=== PATIENT | female | born 1970 | race Caucasian/White ===

== ENCOUNTER 2016-08-08 13:23 | Emergency (ER) | payer BC ==
--- NOTE | 2016-08-08 13:49 | ERPHSYRPT ---
- History of Present Illness Time Seen by Provider: 08/08/16 13:42 Source: patient Exam Limitations: no limitations Physician History: Seen at last week and was treated for "sinusitis," similar to previous episodes. States still congested and noticed increase headaches for past 2-3 days, similar to previous migraines. States usually takes Imitrex with relief, but did not have any Imitrex to use. Described R temporal headache, throbbing with nausea, vomiting blurred vision, dizziness and photophobia. Denies any blurred vision, numbness or weakness of extremities. States dry cough, fever, nasal congestion, sore throat and bilat. ear aches. States have tried OTC meds but have not been on any antibiotics Timing/Duration: day(s) (3) Quality: throbbing Head Pain Location: frontal, temporal (r) Severity of Pain-Max: moderate Severity of Pain-Current: moderate Recent Head Trauma: no recent headache/trauma Modifying Factors: Improves With: exposure to light (worsens) Associated Symptoms: dizziness, facial pain, light-headedness, nausea/vomiting, nasal congestion, nasal drainage, sinus infection, sensitive to light, visual disturbance, No confusion, No fever/chills, No flushing, No loss of consciousness, No speech problems, No stiff neck, No trouble walking, No weakness Previous symptoms: other (similar to previous migraines) Allergies/Adverse Reactions: Penicillins Allergy (Verified 08/08/16 13:51) Home Medications: Duloxetine HCl 30 mg [Cymbalta 30 MG Capsule] 30 mg PO DAILY 08/08/16 [ History] - Review of Systems Constitutional: No Fever, No Chills Eyes: No Symptoms Ears, Nose, & Throat: Nose Congestion, Nose Discharge, Throat Pain, Painful Swallowing Respiratory: Cough, No Dyspnea Cardiac: No Chest Pain, No Edema, No Syncope Abdominal/Gastrointestinal: No Abdominal Pain, No Nausea, No Vomiting, No Diarrhea Genitourinary Symptoms: No Dysuria Musculoskeletal: No Back Pain, No Neck Pain Skin: No Rash Neurological: Dizziness, Headache, No Focal Weakness, No Irritability, No Lethargy, No Sensory Changes Psychological: No Symptoms Endocrine: No Symptoms All Other Systems: Reviewed and Negative - Nursing Vital Signs Nursing Vital Signs: Initial Vital Signs Temperature 98.3 F Pulse Rate 93 Respiratory Rate 16 Blood Pressure [Right Arm] 168/77 Blood Pressure [Left Arm] 186/99 Pain Intensity 4 - Physical Exam General Appearance: mild distress, anxiety, other (tearful) Eye Exam: PERRL/EOMI, eyes nml inspection, photophobia Ears, Nose, Throat Exam: normal ENT inspection, moist mucous membranes Neck Exam: normal inspection, supple, full range of motion, No meningismus Respiratory Exam: normal breath sounds, lungs clear Cardiovascular Exam: regular rate/rhythm, normal heart sounds Gastrointestinal/Abdominal Exam: soft, No tenderness, No distention Back Exam: normal inspection, normal range of motion Mental Status Exam: alert, oriented x 3, cooperative intellectual property manager Exam: normal speech, PERRL, No facial droop Coordination/Gait Exam: normal cerebellar function Motor/Sensory Exam: no motor deficit, no sensory deficit Skin Exam: normal color, warm, dry, No rash - Course Nursing assessment & vital signs reviewed: Yes - CT Exams Head CT Interpretation: Negative, Tele-radiologist Report Ordered Tests: Active Orders 24 hr Category Date Time Status IV Insertion STAT Care 08/08/16 13:55 Active HEAD WITHOUT CONTRAST [CT] Stat Exams 08/08/16 13:55 Ordered Medication Summary Discontinued Medications Generic Name Dose Route Start Last Admin Trade Name Freq PRN Reason Stop Dose Admin Diphenhydramine HCl 25 mg 08/08/16 13:55 08/08/16 14:08 Benadryl 50 Mg/Ml IV 08/08/16 13:56 25 mg STAT ONE Administration Diphenhydramine HCl Confirm 08/08/16 14:01 Benadryl 50 Mg/Ml Administered 08/08/16 14:02 Dose 50 mg .ROUTE .STK-MED ONE Sodium Chloride 500 mls @ 999 mls/hr 08/08/16 13:55 08/08/16 14:08 Sodium Chloride 0.9% 1000 Ml IV 08/08/16 14:25 999 mls/hr .Q31M STA Administration Sodium Chloride Confirm 08/08/16 14:01 Sodium Chloride 0.9% 1000 Ml Administered 08/08/16 14:02 Dose 1,000 mls @ ud .ROUTE .STK-MED ONE Ketorolac Tromethamine 30 mg 08/08/16 13:55 08/08/16 14:09 Toradol 30 Mg Injection IV 08/08/16 13:56 30 mg STAT ONE Administration Ketorolac Tromethamine Confirm 08/08/16 14:01 Toradol 30 Mg Injection Administered 08/08/16 14:02 Dose 30 mg .ROUTE .STK-MED ONE Prochlorperazine Edisylate 10 mg 08/08/16 13:55 08/08/16 14:09 Compazine 10 Mg/2 Ml IV 08/08/16 13:56 10 mg STAT ONE Administration Prochlorperazine Edisylate Confirm 08/08/16 14:01 Compazine 10 Mg/2 Ml Administered 08/08/16 14:02 Dose 10 mg .ROUTE .STK-MED ONE - Progress Progress: improved Air Movement: good Progress Note: 08/08/16 13:54 Pt. given Compazine, Benadryl, and Toradol 08/08/16 15:09 Pt. resting comfortably sleeping at this time. Counseled pt/family regarding: diagnosis, rad results - Departure Time of Disposition: 15:38 Departure Disposition: Home Clinical Impression: Headache, Sinusitis Condition: Stable Critical Care Time: No Instructions: Headache, Sinusitis Additional Instructions: RX: Levaquin/Compazine Motrin or Tylenol for fever/pain Return for worse headache, dizziness, vomiting or any problems. Prescriptions: Levofloxacin [Levaquin] 500 mg PO DAILY #10 tablet Prochlorperazine Maleate 10 mg [Compazine 10 mg] 10 mg PO Q6-8HPRN PRN #12 tablet PRN Reason: Nausea/Vomiting
[2016-08-08] MEDS ORDERED: BENADRYL 50 MG/ML IV ONE (13:55)
[2016-08-08] MEDS ORDERED: TORAdol 30 mg Injection IV ONE (13:55)
[2016-08-08] MEDS ORDERED: Compazine 10 MG/2 ML IV ONE (13:55)
[2016-08-08] MEDS ORDERED: Sodium Chloride 0.9% 1000 ML 1,000 ML ONE (14:01)
[2016-08-08] MEDS ORDERED: TORAdol 30 mg Injection ONE (14:01)
[2016-08-08] MEDS ORDERED: Compazine 10 MG/2 ML ONE (14:01)
[2016-08-08] MEDS ORDERED: BENADRYL 50 MG/ML ONE (14:01)
[2016-08-08 14:57] VITALS: BP 168/77; PULSE 93; O2SAT 95
--- NOTE | 2016-08-08 19:33 | XRAY ---
Indication: Cluster headaches. Multiple contiguous axial images obtained through the head without contrast. Comparison: February 22, 2009. Again normal appearing brain parenchyma, ventricles, and bony calvarium. There is small fluid leveling in both maxillary sinuses. Mastoid air cells clear. Impression: Again no acute intracranial abnormalities. Incidental paranasal sinus disease. Comment: Preliminary interpretation was made by [facility]. No discrepancy. CTDI 67.80
== END 2016-08-08 15:50 | disposition home or self-care (01) ==
LOC: ED 13:23
DX: R51 Headache (principal); J32.9 Chronic sinusitis, unspecified; R11.2 Nausea with vomiting, unspecified; H53.8 Other visual disturbances; R42 Dizziness and giddiness
CPT/HCPCS: 36000; 70450; 96360; 96374; 96375; 99284; J1200; J1885

== ENCOUNTER 2022-03-06 09:58 | Emergency (ER) | payer OTHER ==
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
[2022-03-06 10:09] VITALS: O2SAT 98
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
[2022-03-06 11:12] VITALS: BP 146/93; PULSE 88
== END 2022-03-06 11:30 | disposition home or self-care (01) ==
LOC: ED 09:58
DX: G44.319 Acute post-traumatic headache, not intractable (principal); S30.1XXA Contusion of abdominal wall, initial encounter; V89.2XXA Person injured in unspecified motor-vehicle accident, traffic, initial encounter; I10 Essential (primary) hypertension; Z79.899 Other long term (current) drug therapy
CPT/HCPCS: 70450; 74176; 99282

== ENCOUNTER 2022-05-10 13:55 | Emergency (ER) | payer SELFPAY ==
[2022-05-10] MEDS ORDERED: Nitrostat 0.4 MG (ED) SL ONE ×2 (14:03→14:17)
[2022-05-10] MEDS ORDERED: Sodium Chloride 0.9% 1000 ML 1,000 ML IV STA (14:03)
[2022-05-10] MEDS ORDERED: BABY ASPIRIN 81 MG CHEW PO ONE (14:03)
--- NOTE | 2022-05-10 14:07 | ERPHSYRPT ---
- History of Present Illness Time Seen by Provider: 05/10/22 14:05 Historian: patient Exam Limitations: no limitations Physician History: Pt c/o chest pain; a few episodes during last few weeks. Pain located on right side. No radiation. Described as sharp. Lasts for several minutes each episode Both at rest and on exertion. Nothing helps the pain Endorses SOB. Denies palpitations, heartburn or emotional stressors. Timing/Duration: week(s) (2) Activities at Onset: activity Quality: sharpness, stabbing Location: other (right chest) Chest Pain Radiation: no radiation Severity of Pain-Max: severe Severity of Pain-Current: severe Modifying Factors: Improves With: nothing Associated Symptoms: nausea, shortness of breath, cough, hurts to breathe, No vomiting, No palpitations, No abdominal pain, No chills, No fever Prior Chest Pain/Cardiac Workup: non-cardiac Nitro Today/Relief: 0.4 mg x 1, provided by ED Aspirin Treatment Today: 81 mg x 4, provided by ED Allergies/Adverse Reactions: Penicillins Allergy (Verified 05/10/22 14:24) Home Medications: Duloxetine HCl 30 mg [Cymbalta 30 MG Capsule] 30 mg PO HS 08/08/16 [History] ALPRAZolam 0.25 MG [xanAX 0.25 MG] 0.25 mg PO DAILY PRN 03/06/22 [History] Lisinopril 10 mg [Zestril 10 MG] 10 mg PO DAILY 03/06/22 [History] Dextroamphetamine/Amphetamine [Adderall 10 mg Tablet] 10 mg PO DAILY 05/10/22 [History] Hx Tetanus, Diphtheria Vaccination/Date Given: No Hx Influenza Vaccination/Date Given: No Hx Pneumococcal Vaccination/Date Given: No Travel Risk - Vaccine Status Have you recieved a Covid-19 vaccination: Yes Applied Researcher: Unknown - Vaccination Dates Dates if Unknown: 2020 - Review of Systems Constitutional: No Symptoms Eyes: No Symptoms Ears, Nose, & Throat: No Symptoms Respiratory: Cough, Dyspnea, Dyspnea on Exertion (JONES), No Wheezing Cardiac: Chest Pain, No Edema, No Palpitations Abdominal/Gastrointestinal: Nausea, No Abdominal Pain, No Vomiting, No Diarrhea, No Constipation Genitourinary Symptoms: No Symptoms Musculoskeletal: No Symptoms Skin: No Symptoms Neurological: No Symptoms Psychological: Anxiety Endocrine: No Symptoms Hematologic/Lymphatic: No Symptoms Immunological/Allergic: No Symptoms - Past Medical History Pertinent Past Medical History: Yes Neurological History: Migraines Respiratory History: Asthma Psycho-Social History: Anxiety - Past Surgical History Past Surgical History: Yes Gastrointestinal: Appendectomy, Cholecystectomy Musculoskeletal: Orthopedic Surgery Female Surgical History: Hysterectomy - Social History Smoking Status: Never smoker Exposure to second hand smoke: No Drug Use: none Patient Lives Alone: Yes - Nursing Vital Signs Nursing Vital Signs: Initial Vital Signs Pulse Rate 97 H 05/10/22 13:55 Respiratory Rate 23 05/10/22 13:55 Blood Pressure 168/97 05/10/22 13:55 O2 Sat by Pulse Oximetry 96 05/10/22 13:55 Pain Scale Pain Intensity 7 - Physical Exam General Appearance: mild distress, anxiety Eye Exam: eyes nml inspection Ears, Nose, Throat Exam: normal ENT inspection Neck Exam: normal inspection Respiratory Exam: normal breath sounds, chest tenderness (right anterior chest), lungs clear, airway intact, No respiratory distress Cardiovascular Exam: regular rate/rhythm, normal heart sounds, No murmur Gastrointestinal/Abdomen Exam: soft, normal bowel sounds, No tenderness Extremity Exam: normal inspection, No swelling, No tenderness Neurologic Exam: alert, oriented x 3, cooperative Skin Exam: normal color, warm, dry SpO2 Interpretation: borderline oxygenation O2 Delivery: Room Air - Course Nursing assessment & vital signs reviewed: Yes EKG Interpreted by Me: RATE (106), Sinus Tach, NORMAL AXIS, NORMAL INTERVALS, NORMAL ST-T - Radiology Exams Chest X-ray Interpretation: Interpreted by me, Negative Ordered Tests: Active Orders 24 hr Category Date Time Status Engineering Intern STAT Care 05/10/22 14:04 Active EKG-ER Only STAT Care 05/10/22 14:03 Active IV Insertion STAT Care 05/10/22 14:03 Active CHEST 2 VIEWS (PA AND LAT) Stat Exams 05/10/22 14:03 Taken CBC W DIFF Stat Lab 05/10/22 14:10 Completed CMP Stat Lab 05/10/22 14:10 Completed D-DIMER QUANTITATIVE Stat Lab 05/10/22 14:10 Completed NT PRO BNPII Stat Lab 05/10/22 14:30 Completed TROPONIN Q4H Lab 05/10/22 14:10 Completed TROPONIN Q4H Lab 05/10/22 18:15 Ordered TROPONIN Q4H Lab 05/10/22 22:15 Ordered Urine Triage Profile Stat Lab 05/10/22 15:33 Received Medication Summary Discontinued Medications Generic Name Dose Route Start Last Admin Trade Name Michael PRN Reason Stop Dose Admin Aspirin 324 mg 05/10/22 14:03 05/10/22 14:18 Aspirin 81 Mg Tab.Chew PO 05/10/22 14:04 324 mg STAT ONE Administration Aspirin Confirm 05/10/22 14:17 Aspirin 81 Mg Tab.Chew Administered 05/10/22 14:18 Dose 324 mg .ROUTE .STK-MED ONE Droperidol 1.25 mg 05/10/22 14:03 05/10/22 14:20 Droperidol 5 Mg/2 Ml Vial IV 05/10/22 14:04 1.25 mg STAT ONE Administration Droperidol Confirm 05/10/22 14:17 Droperidol 5 Mg/2 Ml Vial Administered 05/10/22 14:18 Dose 5 mg .ROUTE .STK-MED ONE Sodium Chloride 1,000 mls @ 999 mls/hr 05/10/22 14:03 05/10/22 15:32 Sodium Chloride 0.9% 1000 Ml IV 05/10/22 15:03 Infused .Q1H1M STA Infusion Sodium Chloride Confirm 05/10/22 14:17 Sodium Chloride 0.9% 1000 Ml Administered 05/10/22 14:18 Dose 1,000 mls @ ud .ROUTE .STK-MED ONE Ketorolac Tromethamine Confirm 05/10/22 15:46 Ketorolac Tromethamine 30 Mg/Ml Inj Administered 05/10/22 15:47 Dose 30 mg .ROUTE .STK-MED ONE Ketorolac Tromethamine 30 mg 05/10/22 15:47 05/10/22 15:48 Ketorolac Tromethamine 30 Mg/Ml Inj IV 05/10/22 15:48 30 mg STAT ONE Administration Nitroglycerin 0.4 mg 05/10/22 14:03 05/10/22 14:19 Nitroglycerin 0.4 Mg (Ed) 0.4 Mg Tab.Subl SL 05/10/22 14:04 0.4 mg STAT ONE Administration Nitroglycerin Confirm 05/10/22 14:17 Nitroglycerin 0.4 Mg (Ed) 0.4 Mg Tab.Subl Administered 05/10/22 14:18 Dose 0.4 mg SL .STK-MED ONE Lab/Rad Data: Laboratory Result Diagrams 05/10/22 14:10 05/10/22 14:10 Laboratory Results 05/10/22 05/10/22 05/10/22 Range/Units 14:30 14:10 14:10 WBC (4.0-10.5) x10^3/uL RBC (4.1-5.4) x10^6/uL Hgb (12.0-16.0) g/dL Hct (35-47) % MCV (78-100) fL MCH (26-32) pg MCHC (32-36) g/dL RDW (11.5-14.0) % Plt Count (150-450) x10^3/uL MPV (7.5-11.0) fL Gran % (36.0-66.0) % Immature Gran % (Auto) (0.00-0.4) % Nucleat RBC Rel Count (0.00-0.1) % Eos # (Auto) (0-0.5) x10^3/uL Immature Gran # (Auto) (0.00-0.03) x10^3u/L Absolute Lymphs (auto) (1.0-4.6) x10^3/uL Absolute Monos (auto) (0.0-1.3) x10^3/uL Absolute Nucleated RBC (0.00-0.01) x10^3u/L Lymphocytes % (24.0-44.0) % Monocytes % (0.0-12.0) % Eosinophils % (0.00-5.0) % Basophils % (0.0-0.4) % Absolute Granulocytes (1.4-6.9) x10^3/uL Basophils # (0-0.4) x10^3/uL D-Dimer 0.35 (0.0-0.50) mg/L Sodium (137-145) mmol/L Potassium (3.5-5.1) mmol/L Chloride (98-107) mmol/L Carbon Dioxide (22-30) mmol/L Anion Gap (5-15) MEQ/L BUN (7-17) mg/dL Creatinine (0.52-1.04) mg/dL Estimated GFR ML/MIN Glucose (74-106) mg/dL Calcium (8.4-10.2) mg/dL Total Bilirubin (0.2-1.3) mg/dL AST (14-36) U/L ALT (0-35) U/L Alkaline Phosphatase (38-126) U/L Troponin I < 0.012 (0.000-0.034) ng/mL NT-Pro-B Natriuret Pep 55.1 (<300) pg/mL Serum Total Protein (6.3-8.2) g/dL Albumin (3.5-5.0) g/dL 05/10/22 05/10/22 Range/Units 14:10 14:10 WBC 9.1 (4.0-10.5) x10^3/uL RBC 4.90 (4.1-5.4) x10^6/uL Hgb 13.6 (12.0-16.0) g/dL Hct 41.7 (35-47) % MCV 85.1 (78-100) fL MCH 27.8 (26-32) pg MCHC 32.6 (32-36) g/dL RDW 13.0 (11.5-14.0) % Plt Count 296 (150-450) x10^3/uL MPV 10.0 (7.5-11.0) fL Gran % 65.5 (36.0-66.0) % Immature Gran % (Auto) 0.3 (0.00-0.4) % Nucleat RBC Rel Count 0.0 (0.00-0.1) % Eos # (Auto) 0.21 (0-0.5) x10^3/uL Immature Gran # (Auto) 0.03 (0.00-0.03) x10^3u/L Absolute Lymphs (auto) 2.29 (1.0-4.6) x10^3/uL Absolute Monos (auto) 0.57 (0.0-1.3) x10^3/uL Absolute Nucleated RBC 0.00 (0.00-0.01) x10^3u/L Lymphocytes % 25.1 (24.0-44.0) % Monocytes % 6.3 (0.0-12.0) % Eosinophils % 2.3 (0.00-5.0) % Basophils % 0.5 (0.0-0.4) % Absolute Granulocytes 5.97 (1.4-6.9) x10^3/uL Basophils # 0.05 (0-0.4) x10^3/uL D-Dimer (0.0-0.50) mg/L Sodium 139 (137-145) mmol/L Potassium 4.1 (3.5-5.1) mmol/L Chloride 104 (98-107) mmol/L Carbon Dioxide 25 (22-30) mmol/L Anion Gap 14.0 (5-15) MEQ/L BUN 15 (7-17) mg/dL Creatinine 0.74 (0.52-1.04) mg/dL Estimated GFR > 60.0 ML/MIN Glucose 101 (74-106) mg/dL Calcium 8.9 (8.4-10.2) mg/dL Total Bilirubin 0.50 (0.2-1.3) mg/dL AST 46 H (14-36) U/L ALT 28 (0-35) U/L Alkaline Phosphatase 161 H (38-126) U/L Troponin I (0.000-0.034) ng/mL NT-Pro-B Natriuret Pep (<300) pg/mL Serum Total Protein 8.2 (6.3-8.2) g/dL Albumin 4.4 (3.5-5.0) g/dL - Progress Progress: improved Air Movement: good Progress Note: 05/10/22 16:07 EKG w/o any acute ischemic findings. Troponin wnl D-dimer wnl CBC, CMP wnl No risk factors. Will send w/ Ketorolac, Skelaxin F/U PCP outpatient Blood Culture(s) Obtained: No Antibiotics given: No Counseled pt/family regarding: lab results, diagnosis, need for follow-up, rad results Medical Desision Making - Diagnostic Testing Diagnostic test were ordered, analyzed, and reviewed by me: Yes Radiological Interpretation: Interpreted by me - Risk of complications The pt has a mod risk of morbidity or mortality based on: Need for prescription drug management - Departure Departure Disposition: Home Clinical Impression: Breast pain, right, Chest pain, Intercostal muscle pain Condition: Good Critical Care Time: No Referrals: SHAE JACKSON NP [Primary Care Provider] - Follow up/PCP as directed Instructions: Chest Pain (DC) Prescriptions: Metaxalone 800 mg PO TID PRN 5 Days #15 tablet PRN Reason: Muscle Spasms Ketorolac Trometh 10 mg Tab [TORAdol 10 MG TABLET] 10 mg PO Q6H PRN 5 Days #20 tablet PRN Reason: Pain
[2022-05-10] MEDS ORDERED: BABY ASPIRIN 81 MG CHEW ONE (14:17)
[2022-05-10] MEDS ORDERED: Sodium Chloride 0.9% 1000 ML 1,000 ML ONE (14:17)
[2022-05-10 14:18] LABS: Absolute Neutrophil Ct (ANC) 5.97 x10^3/uL (1.4-6.9); BASOPHIL % 0.5 % (0.0-0.4); Basophil (Absolute #) 0.05 x10^3/uL (0-0.4); Eosinophil % 2.3 % (0.00-5.0); Eosinophil (Absolute #) 0.21 x10^3/uL (0-0.5); Hematocrit 41.7 % (35-47); Hemoglobin 13.6 g/dL (12.0-16.0); IMMATURE GRAN # 0.03 x10^3u/L (0.00-0.03); IMMATURE GRAN % 0.3 % (0.00-0.4); Lymphocyte (Absolute #) 2.29 x10^3/uL (1.0-4.6); Lymphocytes % 25.1 % (24.0-44.0); Mean Cell Volume 85.1 fL (78-100); Mean Corpuscular Hemoglobin 27.8 pg (26-32); Mean Corpuscular Hgb Concent. 32.6 g/dL (32-36); Monocyte (Absolute #) 0.57 x10^3/uL (0.0-1.3); Monocytes % 6.3 % (0.0-12.0); Neutrophil % 65.5 % (36.0-66.0); Platelet Count 296 x10^3/uL (150-450); White Blood Count 9.1 x10^3/uL (4.0-10.5)
[2022-05-10 14:38] LABS: ALBUMIN 4.4 g/dL (3.5-5.0); ALKALINE PHOSPHATASE 161 U/L (38-126); BLOOD UREA NITROGEN 15 mg/dL (7-17); CHLORIDE 104 mmol/L (98-107); Calcium 8.9 mg/dL (8.4-10.2); Carbon Dioxide 25 mmol/L (22-30); Creatinine 1 0.74 mg/dL (0.52-1.04); EST GLOMERULAR FILTRATION RATE > 60.0 ML/MIN; Glucose 101 mg/dL (74-106); Potassium 4.1 mmol/L (3.5-5.1); SGOT/AST 46 U/L (14-36); SGPT/ALT 28 U/L (0-35); SODIUM 139 mmol/L (137-145); Total Protein 8.2 g/dL (6.3-8.2)
[2022-05-10] MEDS ORDERED: TORAdol 30 mg Injection ONE (15:46)
[2022-05-10] MEDS ORDERED: TORAdol 30 mg Injection IV ONE (15:47)
[2022-05-10 16:00] LABS: Amphetamine,Urine NEGATIVE (NEGATIVE); Barbiturate,Urine NEGATIVE (NEGATIVE); Benzodiazepine,Urine NEGATIVE (NEGATIVE); Cocaine,Urine NEGATIVE (NEGATIVE); Methadone,Urine NEGATIVE (NEGATIVE); Opiate,Urine NEGATIVE (NEGATIVE); PCP,Urine NEGATIVE (NEGATIVE); THC,Urine NEGATIVE (NEGATIVE)
[2022-05-10 16:11] VITALS: BP 132/73; PULSE 86; O2SAT 98
--- NOTE | 2022-05-10 19:44 | XRAY ---
Indication: Chest pain. Comparison: November 25, 2007 PA/lateral chest again inflated and clear. Heart and mediastinal structures within normal limits. Bony thorax intact with minimal degenerative changes. Impression: Continued nonacute chest.
== END 2022-05-10 16:15 | disposition home or self-care (01) ==
LOC: ED 13:55
DX: R07.9 Chest pain, unspecified (principal); N64.4 Mastodynia; M79.18 Myalgia, other site; Z79.899 Other long term (current) drug therapy
CPT/HCPCS: 36000; 36415; 71046; 80053; 80307; 83880; 84484; 85025; 85379; 93005; 93041; 96360; 96374; 96375; 99284; J1885; A9270-GY